=== PATIENT | female | born 1965 | race Caucasian/White ===

== ENCOUNTER 2025-01-28 10:49 | Emergency (ER) | payer OTHER, SELFPAY ==
[2025-01-28 10:54] VITALS: BP 137/87; PULSE 81; RESP 20; TEMP 37.2; O2SAT 99; BMI 25.0
--- NOTE | 2025-01-28 11:42 | ED_ITS ---
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 Patient denies eating any new or unusual foods, states the only thing she did differently prior to onset of symptoms was picking up a box of files at work and going through the files, symptoms began shortly thereafter. She denies any shortness of breath or difficulty breathing. Denies any abdominal pain, nausea or vomiting. States symptoms have mostly resolved since arriving to the ED. complaint: rash Onset (ago): hour(s) Related Data Allergies Allergy/AdvReac Type Severity Reaction Status Date / Time acetaminophen Allergy Hives Verified 01/28/25 10:58 [From Excedrin Migraine] aspirin Allergy Hives Verified 01/28/25 10:58 [From Excedrin Migraine] caffeine Allergy Hives Verified 01/28/25 10:58 [From Excedrin Migraine] Review of Systems Review of Systems: As per HPI Yes all other systems are reviewed and are negative Constitutional: Constitutional: Reports as per HPI [facility] Social History Social History Smoked in Last 30 Days: No Use of substances other than those prescribed or required for medical reasons: No Advance Directives: No Advance Directives Information Provided: Yes Do you have a plan to hurt others: No Plan Physical Exam ED Vital Signs: Vital Signs - 24 hr 01/28/25 10:54 01/28/25 12:16 01/28/25 13:19 Temperature 98.9 F 97.5 F Pulse Rate 81 76 72 Respiratory Rate 20 16 16 Blood Pressure 137/87 135/82 128/87 Pulse Oximetry 99 100 97 Oxygen Delivery Method Room Air Room Air Room Air BMI result Body Mass Index 25.0 Vital signs have been reviewed and appear to be correct. Blood pressure normal. Heart rate normal. Respiratory rate normal. Temperature normal. Oxygen saturation normal. Const General: cooperative, healthy appearing and no acute distress Orientation/consciousness: oriented to person, oriented to place, oriented to time and patient oriented x3 Limitations: no limitations HENMT Head: Yes normocephalic and Yes atraumatic Ears: external ears normal General nose exam: Normal external nose present Face and sinus: Yes face symmetric Mouth: Normal oral and palatal mucosa present, lip normal, tongue normal, oropharynx normal and moist mucous membranes Throat: Yes uvula midline and No uvular edema Eyes Pupils: Equal, round and reactive pupils present Neck Neck: Yes normal visual inspection and Yes supple Resp Effort & Inspection: normal respiratory effort and able to speak in complete sentences Auscultation: clear to auscultation bilaterally Cardio Rate: regular rate Rhythm: regular rhythm Heart sounds: S1 normal heart sound present and S2 normal heart sound present GI Palpation (GI): Soft to palpation and nontender Auscultation: normoactive bowel sounds General: Yes no CVA tenderness Back/Spine/Pelvis Back: no CVA tenderness Skin General skin exam: no rashes or lesions noted, elasticity normal and turgor normal Neuro General: oriented to person, oriented to place, oriented to time, patient oriented x3, moves all extremities, no focal motor deficits and CN's II-XI intact bilaterally Cranial nerves: Yes Equal, round and reactive pupils present Cognition (Neuro): normal cognition Extrem General: Yes full ROM, Yes no pedal edema and Yes no calf tenderness Psych Mental Status: mental status grossly normal Affect: normal affect Thought process: Normal thought process present Medications Administered Discontinued Medications Generic Name Dose Route Start Last Admin Trade Name Freq PRN Reason Stop Dose Admin Diphenhydramine HCl 25 mg 01/28/25 11:46 01/28/25 12:17 Diphenhydramine Hcl 25 Mg Capsule PO 01/28/25 11:47 25 mg ONCE ONE Administration Famotidine 20 mg 01/28/25 11:46 01/28/25 12:17 Famotidine 20 Mg Tablet PO 01/28/25 11:47 20 mg ONCE ONE Administration Prednisone 60 mg 01/28/25 11:46 01/28/25 12:17 Prednisone 20 Mg Tablet PO 01/28/25 11:47 60 mg ONCE ONE Administration Medical Decision Making Medical Decision Making [facility] Narrative: Patient is a 59-year-old female presenting to the emergency department with complaint of rash, prickly sensation to face which began shortly before arrival. On exam patient is awake, A+Ox3, VS WNL, afebrile, normal neurological exam without focal deficits, physical exam findings as above. Given reported symptoms and physical exam findings, initial differential includes but is not limited to contact dermatitis, allergic reaction. Do not suspect anaphylaxis. 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 Medicated with solu-medrol, famotidine and benadryl with improvement in remaining symptoms. Observed for one hour, patient now requesting discharge. Feel patient is stable for discharge at this time. Return precautions discussed with patient and drapery supervisor at bedside. Advised patient she can continue to use [id number] cetirizine or loratadine as well as Pepcid as needed. Patient verbalized understanding of and agreement with plan. Differential Diagnosis Differential Diagnoses: The differential diagnosis associated with the presentation includes As per [facility] External Record Review External record reviewed: Inpatient record, Office record and Outpatient record Discharge Plan Discharge Clinical Impression: Contact dermatitis Patient Disposition: Home, Self-Care Instructions: Contact Dermatitis (DC) Additional Instructions: You were evaluated in the emergency department today for an allergic reaction. You have been given medications to control your symptoms. You have been observed in the emergency department and you are stable for discharge at this time. You can take Zyrtec (cetirizine) and Pepcid (Famotidine), which are available [id number], to help control your symptoms at home. Schedule an appointment with your primary care physician for follow-up. Return to the emergency department if you experience rashes, difficulty breathing or swallowing, lip/mouth/tongue swelling, vomiting, or for any other concerning symptoms. Print Language: Slovak
[2025-01-28 12:16] VITALS: BP 135/82; PULSE 76; RESP 16; O2SAT 100
[2025-01-28] MEDS: predniSONE 20 MG TABLET 60 MG PO (12:17)
[2025-01-28] MEDS: Famotidine 20 MG TABLET PO (12:17)
[2025-01-28] MEDS: diphenhydrAMINE HCL 25 MG CAPSULE PO (12:17)
[2025-01-28 13:19] VITALS: BP 128/87; PULSE 72; RESP 16; TEMP 36.4; O2SAT 97
[2025-01-28 13:36] VITALS: BP 128/87; PULSE 72; RESP 16; TEMP 36.4; O2SAT 97
--- OUTSIDE RECORDS SUMMARY | 2025-01-28 14:38 | XMS_ITS | Clinical Summary ---
Author Organization [facility] [address] ity Address [address] [place] [address] Care Team Providers Care Care Management Coordinator Name Role Phone Unavailable Primary Care Provider Unavailabl e Surgical History Surgery Date Site/Laterality Comments APPENDECTOMY PROCEDURE: OR APPENDECTOMY BREAST REDUCTION PROCEDURE: OR BREAST REDUCTION BELT ABDOMINOPLASTY PROCEDURE: HISTORICAL TUMMY TUCK WISDOM TOOTH EXTRACTION PROCEDURE: HISTORICAL WISDOM TEETH EXTRACTION Medical History Medical History Date Comments Historical Medical DX 10/18/2008 DX:NO ACTI VE MEDICAL PROBLEMS Herniated cervical intervert ebral disc 02/05/2011 DX:Herniated cervical interv ertebral disc Radiculitis, cervical 02/12/2011 DX:Radicul itis, cervical Vitamin D deficiency 02/05/2013 DX:Vitamin D deficiency Family History Medical History Relation Name Comments Other cancer Maternal Grandfather Other cancer Maternal Grandmother Hypertension Mother Heart attack Paternal Grandfather Relation Name Status Comments Maternal Grandfather Maternal Grandmother Mother Paternal Grandfather Social History Tobacco Use Types Packs/Day Years Used Date Smoking Tobacco: Former Smokeless Tobacco: Never Alcohol Use Standard Drinks/Week Comments No 0 (1 standard drink = 0.6 oz pur e alcohol) Comments Unknown Sex and Gender Information Value Date Recorded Sex Assigned at Not on file Legal Sex Female 5:05 AM EST Gender Identity Not on file Sexual Orientation Not on file Obstetrics History Plan of Treatment Health Maintenance Due Date Last Done Comments Breast Cancer Screening 1965 Hepatitis B Vaccines (1 of 3 - 19+ 3-dose series) 1984 Cervical Cancer Screening: P ap Smear 1986 Pneumococcal Vaccine: 50+ Ye ars (1 of 1 - PCV) 2015 Zoster Vaccines (1 of 2) 2015 DTaP,Tdap,and Td Vaccines (2 - Td or Tdap) 02/17/2023 02/17/2013 Colorectal Cancer Screening: Colonoscopy 06/22/2024 Depression Screening 06/22/2024 HIV Screening 06/22/2024 Hepatitis C Screening 06/22/2024 Social Influencers of Health Screening 06/22/2024 COVID-19 Vaccine ( - 2023-2 5 season) 2024 Influenza Vaccine (#1) 2024 RSV Immunization Patients 60 + Years Old (1 - 1-dose 75+ series) 2040 HIB Vaccines Aged Out No longer eligi ble based on patient's age to complete this topic HPV Vaccines Aged Out No longer eligi ble based on patient's age to complete this topic Hepatitis A Vaccines Aged Out No long er eligible based on patient's age to complete this topic IPV Vaccines Aged Out No longer eligi ble based on patient's age to complete this topic MMR Vaccines Aged Out No longer eligi ble based on patient's age to complete this topic Meningococcal ACWY Vaccine Aged Out N o longer eligible based on patient's age to complete this topic Meningococcal B Vacine Aged Out No lo nger eligible based on patient's age to complete this topic Pneumococcal Vaccine: Pediat rics (0 to 5 Years) and At-Risk Patients (6 to 64 Years) Aged Out No longer eligi ble based on patient's age to complete this topic RSV Immunization Patients Un sandy 20 months Aged Out No longer eligible b ased on patient's age to complete this topic Varicella Vaccines Aged Out No longer eligible based on patient's age to complete this topic
--- OUTSIDE RECORDS SUMMARY | 2025-01-28 14:38 | XMS_ITS | Continuity of Care Document ---
Author Organization [facility] Address [address] [place] [address]- Support Name Relationship Address Phone ARTEMIO, LUIS ALBERTO Personal Relationship Unknown Unavai lable ARTEMIO, LUIS ALBERTO Personal Relationship Unknown Unavai lable ARTEMIO, LUIS ALBERTO Personal Relationship Unknown Unavai lable ARTEMIO, LUIS ALBERTO Personal Relationship Unknown Unavai lable ARTEMIO, LUIS ALBERTO Personal Relationship Unknown Unavai lable ARTEMIO, LUIS ALBERTO Personal Relationship Unknown Unavai lable ARTEMIO, LUIS ALBERTO Personal Relationship Unknown Unavai lable ARTEMIO, LUIS ALBERTO Personal Relationship Unknown Unavai lable ARTEMIO, LUIS ALBERTO Personal Relationship Unknown Unavai lable ARTEMIO, LUIS ALBERTO Personal Relationship Unknown Unavai lable ARTEMIO, LUIS ALBERTO Personal Relationship Unknown Unavai lable CHING, JARAD mother Unknown Unavailab le ARTEMIO, LUIS ALBERTO Personal Relationship Unknown Unavai lable ARTEMIO, LUIS ALBERTO Personal Relationship Unknown Unavai lable ARTEMIO, LUIS ALBERTO Personal Relationship Unknown Unavai lable ARTEMIO, LUIS ALBERTO spouse Unknown Unavailable ARTEMIO, LUIS ALBERTO Personal Relationship Unknown Unavai lable ARTEMIO, LUIS ALBERTO Personal Relationship Unknown Unavai lable ARTEMIO, LUIS ALBERTO F Personal Relationship Unknown Unav ailable ARTEMIO, LUIS ALBERTO Personal Relationship Unknown Unavai lable ARTEMIO, LUIS ALBERTO Personal Relationship Unknown Unavai lable ARTEMIO, LUIS ALBERTO F Personal Relationship Unknown Unav ailable ARTEMIO, LUIS ALBERTO F Personal Relationship Unknown Unav ailable ARTEMIO, LUIS ALBERTO Personal Relationship Unknown Unavai lable ARTEMIO, LUIS ALBERTO Personal Relationship Unknown Unavai lable ARTEMIO, LUIS ALBERTO Personal Relationship Unknown Unavai lable ARTEMIO, LUIS ALBERTO Personal Relationship Unknown Unavai lable ARTEMIO, LUIS ALBERTO Personal Relationship Unknown Unavai lable ARTEMIO, LUIS ALBERTO Personal Relationship Unknown Unavai lable ARTEMIO, LUIS ALBERTO Personal Relationship Unknown Unavai lable ARTEMIO, LUIS ALBERTO Personal Relationship Unknown Unavai lable ARTEMIO, LUIS ALBERTO Personal Relationship Unknown Unavai lable CHING, RUTH sibling Unknown Unavailable ARTEMIO, LUIS ALBERTO Personal Relationship Unknown Unavai lable ARTEMIO, LUIS ALBERTO Personal Relationship Unknown Jennifer ULLOA, LUIS ALBERTO Personal Relationship Unknown Jennifer ULLOA, LUIS ALBERTO Personal Relationship Unknown Jennifer ULLOA, LUIS ALBERTO Personal Relationship Unknown Jennifer labziggy Care Team Providers Care Canvas Repairer Name Role Phone Sumi Lewis MD Primary Care Physician [phone] [id number] Date(s): 12/07/24 - 01/06/25 [facility] [address] [place] [id number] [[email or web address]] Encounter Type: Triage Allergies, Adverse Reactions, Alerts Substance Criticality Severity Reaction Reaction Severity Status aspirin RASH Active Immunizations Given and Recorded Vaccine Date Status Refusal Reason Measles/Mumps/Rubella Virus Vaccine 12/09/23 Given tetanus-diphtheria toxoids (Td) 08/22/23 Given tetanus-diphtheria toxoids (Td) 01/30/06 Given SARS-CoV-2 (COVID-19) mRNA BNT-162b2 vac 03/22/21 Recorded SARS-CoV-2 (COVID-19) mRNA BNT-162b2 vac 02/27/21 Recorded tetanus/diphtheria/pertussis, acel(Tdap) 02/17/13 Given Medications albuterol CFC free 90 mcg/inh inhalation aerosol 1, puffs, Inhalation, 4 times a day, PRN, # 8.5 Gm, Refills 0, Tot. Refills 0, Maintenance, 03/06/24 11:32:00 AM EDT, Aerosol, Route to Pharmacy Electronically, [id number], [facility]/pharmacy #[id number], 157.5, cm, 03/06/24 11:19:00 EDT, Height, 64, kg, 01/29/24 15:32:00 EST, Dry Weight Start Date: 03/06/24 Stop Date: 03/20/24 Status: Ordered Quantity: 8.5 Unit: g Repeat number: 1 citalopram 40 mg oral tablet 1 tablet, By Mouth, Daily, # 90 tablet, 2 Refills, Maintenance, 10/14/24 12:06:00 PM EST, [facility]/pharmacy #[id number], 157.5, cm, 10/14/24 11:58:00 EST, Height, 64.1, kg, 09/09/24 11:56:00 EDT, Dry Weight Start Date: 10/14/24 Status: Ordered Quantity: 90.0 Unit: tablet Repeat number: 3 collagen topical powder 0 Refills, Maintenance, 08/22/23 10:20:00 AM EDT, Partial fill upon patient request if the prescription is for a schedule II opioid drug. Start Date: 08/22/23 Status: Ordered Repeat number: 1 Concerta 36 mg oral tablet, extended release 1 tablet = 36 mg, By Mouth, Daily in AM, # 30 tablet, 0 Refills, Maintenance, 12/07/24 12:45:00 PM EST, ER Tablet, [facility]/pharmacy #[id number], Partial fill upon patient request if the prescription is for a schedule II opioid drug., 157.5, cm, 10/14/24 11:58:00 EST, Height, 64.1, kg, 09/09/24 11:56:00 EDT, Dry Weight Start Date: 12/07/24 Status: Ordered Quantity: 30.0 Unit: tablet Repeat number: 1 doxepin 10 mg/ml oral concentrate 1 mL = 10 mg, By Mouth, Daily at bedtime, # 30 mL, 0 Refills, Maintenance, 10/14/24 12:12:00 PM EST, [facility]/pharmacy #[id number], Partial fill upon patient request if the prescription is for a schedule II opioid drug., 157.5, cm, 10/14/24 11:58:00 EST, Height, 64.1, kg, 09/09/24 11:56:00 EDT, Dry Weight Start Date: 10/14/24 Status: Ordered Quantity: 30.0 Unit: mL Repeat number: 1 omeprazole 20 mg oral enteric coated capsule 1 capsule, By Mouth, Daily, # 30 capsule, 3 Refills, Maintenance, 10/12/24 5:35:00 PM EST, [facility] STORE [id number], 157.5, cm, 09/09/24 11:56:00 EDT, Height, 64.1, kg, 09/09/24 11:56:00 EDT, Dry Weight Start Date: 10/12/24 Status: Ordered Quantity: 30.0 Unit: capsule Repeat number: 1 SUMAtriptan 50 mg oral tablet 1 tablet, By Mouth, Daily, PRN NEEDED FOR MIGRAINE, MAY REPEAT DOSE ONCE AFTER 2 HOURS, # 9 tablet, 4 Refills, Maintenance, 10/13/24 6:23:00 PM EST, [id number], 157.5, cm, 09/09/24 11:56:00 EDT, Height, 64.1, kg, 09/09/24 11:56:00 EDT, Dry Weight Start Date: 10/13/24 Status: Ordered Quantity: 9.0 Unit: tablet Repeat number: 1 triamcinolone 55 mcg/inh nasal spray 1 sprays = 55 mcg, Nares, Both, Daily, # 16.5 Gm, 0 Refills, Maintenance, 01/20/24 5:01:00 PM EST, [place], [facility]/pharmacy #[id number], Partial fill upon patient request if the prescription is for a schedule IIopioid drug., 1 sprays Nares, Both Daily, 157.5, cm, 01/15/24 10:39:00 EST, Height, 61.5, kg, 12/10/23 19:27:00 EST, Dry Weight Start Date: 01/20/24 Status: Ordered Quantity: 16.5 Unit: g Repeat number: 1 Problem List Condition Confirmation Course Effective Dates Status H ealth Status Informant Adjustment disorder with anxiety Confirmed Active Persistent adjustment disorder with anxiety Confirmed Active Assess skin care Confirmed Active ADHD (attention deficit hyperactivity disorder) Confirmed Active BMI 25.0-25.9,adult Confirmed Active Disorder of patellofemoral joint Confirmed Active Family history of aneurysm sister Confirmed Active Ganglion cyst of right wrist Confirmed Active Migraine Confirmed Active Social History Social History Type Response Smoking Status Former smoker, quit more than 30 days ago; Other: 20 years of smoking ; < less than half ppd; Started at age: 15; Stopped at age: 35; entered on: 10/08/19 Sex Sex Representation Female (finding) Patient Care team information Care Team Personnel Name: Sumi Lewis MD Position: [facility] Physician - Primary Care Member Role: PCP Address: [address] [place] [address] Adult and Pediatric Medicine [address] Telecom: Care Team Related Persons Name: JARAD CHING Name: LUIS ALBERTO ULLOA Insurance Providers Guarantor name: NEFATLIMario ULLOA Health Plan Information #: 1 Payer: [facility] PPO Member Number: NA Policy Number: NA Group Number: NA
== END 2025-01-28 13:37 | disposition home or self-care (01) ==
PROVIDERS: Emergency Provider Emergency Medicine; PCP Internal Medicine
DX: L23.9 Allergic contact dermatitis, unspecified cause (principal)
CPT/HCPCS: 99283; 99284